=== PATIENT | male | born 1940 | race Caucasian/White ===

== ENCOUNTER 2020-03-24 08:18 | Outpatient (CLI) | payer MEDICARE, SELFPAY ==
[2020-03-24 10:15] LABS: Prostate Specific Antigen < 0.1 ng/mL (< OR = 4.0)
== END 2020-03-24 08:19 | disposition home or self-care (01) ==
PROVIDERS: PCP Nurse Practitioner Family; Visit Provider Nurse Practitioner Family
DX: Z85.46 Personal history of malignant neoplasm of prostate (principal)
CPT/HCPCS: 36415; 84153